=== PATIENT | female | born 1970 | race African-American/Black ===

== ENCOUNTER 2020-04-29 15:10 | Emergency (ER) | payer MEDICAID ==
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
== END 2020-04-29 16:46 | disposition home or self-care (01) ==
LOC: JP.ED 15:10
DX: F33.1 Major depressive disorder, recurrent, moderate (principal); G47.00 Insomnia, unspecified
CPT/HCPCS: 80305-QW; 81001; 99284